=== PATIENT | male | born 1980 | race Caucasian/White ===

== ENCOUNTER 2024-05-25 21:00 | Emergency (ER) | payer MEDICAID, OTHER ==
[~2024-05-25] VITALS: Ht 167.6 cm; Wt 129.5 kg
[2024-05-25 21:34] LABS: BASOPHILS % (AUTO) 0.5 % (0-1); EOSINOPHILS # (AUTO) 0.2 X10'3 (0-0.9); HEMATOCRIT 40.4 % (42.0-52.0); HEMOGLOBIN 13.7 g/dl (14.0-17.9); LYMPHOCYTES # (AUTO) 3.4 X10'3 (1.1-4.8); LYMPHOCYTES % (AUTO) 38.3 % (21-51); MEAN CORPUSCULAR HGB CONC 33.8 g/dL (33.0-36.5); MEAN CORPUSCULAR VOLUME 85.8 FL (78-98); MONOCYTES # (AUTO) 0.8 X10'3 (0-0.9); MONOCYTES % (AUTO) 8.9 % (2-12); NEUTROPHILS # (AUTO) 4.5 X10'3 (1.8-7.7); NEUTROPHILS % (AUTO) 50.3 % (42-75); PLATELET COUNT 287 X10'3 (140-440); RED BLOOD COUNT 4.71 X10'6 (4.70-6.10); RED CELL DISTRIBUTION WIDTH 13.3 % (11.5-14.5)
[2024-05-25 21:48] LABS: ALANINE AMINOTRANSFERASE 42 U/L (12-78); ALBUMIN 3.8 G/DL (3.4-5.0); ALBUMIN/GLOBULIN RATIO 0.9 (1.1-1.5); ALKALINE PHOSPHATASE 70 IU/L (46-116); ANION GAP 10 (8-16); ASPARTATE AMINO TRANSFERASE 21 U/L (10-37); BILIRUBIN,TOTAL 0.4 MG/DL (0.1-1.0); BLOOD UREA NITROGEN 19 MG/DL (7-18); BUN/CREATININE RATIO 18.4 (10.0-20.0); CALCIUM 9.4 MG/DL (8.5-10.1); CHLORIDE 104 MMOL/L (99-107); CREATININE 1.03 MG/DL (0.60-1.10); GLUCOSE 97 MG/DL (70-104); POTASSIUM 3.7 MMOL/L (3.5-5.1); SODIUM 139 MMOL/L (135-145); TOTAL CARBON DIOXIDE 25.5 MMOL/L (24-32); TOTAL PROTEIN 7.9 G/DL (6.4-8.2); eCRCL 85 ML/MIN; eGFR 80 ML/MIN
[2024-05-25 22:42] VITALS: TEMP 97.3
[2024-05-25 23:06] VITALS: BP 141/79; PULSE 60; RESP 16; O2SAT 98
== END 2024-05-25 23:20 | disposition home or self-care (01) ==
LOC: ER 21:00
DX: R07.89 Other chest pain (principal); F43.9 Reaction to severe stress, unspecified; E66.01 Morbid (severe) obesity due to excess calories; Z56.0 Unemployment, unspecified
CPT/HCPCS: 36415; 71045; 80053; 84484; 85025; 93005; 99285

== ENCOUNTER 2025-01-05 08:38 | Emergency (ER) | payer MEDICAID ==
[~2025-01-05] VITALS: Ht 165.1 cm; Wt 129.1 kg
[2025-01-05] MEDS ORDERED: AMOX-580 PO (10:45)
[2025-01-05] MEDS ORDERED: ALBU8HFA INH (10:47)
--- NOTE | 2025-01-05 10:47 | Physician Documentation ---
History of Present Illness ~ Chief Complaint: Cold, cough & congestion Stated Complaint: RULE OUT PNEUMONIA Time Seen by MD: 10:04 Primary Medical Doctor: none Source: patient Mode of Arrival: POV Exam Limitations: no limitations HPI 44-year-old male with chief complaint sinus congestion and cough for seven days. Cough is dry. He states yesterday he ran a five [employer] and was able to do this but states that today he feels his symptoms are little bit worse and when he called an online telehealth doctor he was told to get evaluated to make sure he did not have pneumonia. Patient denies fever, chills, chest pain. No pre-arrival treatment. States he does not have asthma to his knowledge, but but reports he has been prescribed an inhaler on several occasions. He currently states he does not have an inhaler. Medication Reconciliation Allergies: Coded Allergies: No Known Allergies (Unverified , 01/05/25) Past Medical History Past Medical History: No Pertinent History Past Surgical History: no surgical history Alcohol Use: None Drug Use: none Lives In: Home Occupation: unemployed Review of Systems All Other Systems at this time: Reviewed and Negative Physical Exam Vital Signs: Temperature: 98.8, Source: Oral, Heart Rate: 68, Respiratory Rate: 18, BP: 121/83, Pulse Oximetry: 98, Weight: 129.090 Physical Exam General Appearance: Alert, WD/WN. NAD. HEENT: NCAT, PERRL, EOMI. Tenderness over sinuses. Patient sounds congested. Posterior was pharyngeal wall normal. Neck: Supple, trachea midline. No cervical lymphadenopathy Cardiovascular: RRR. No m/r/g. Lungs: CTAB. Breathing unlabored. No coughing observed. Extremities: Normal inspection. No edema. Skin: Warm/dry, normal color Neurological: Alert and oriented x4, normal gait. Psychiatric: Affect congruent with mood. Progress Results/Orders Results/Orders Vital Signs 01/05/25 08:48 Temp 98.8 Pulse 68 Resp 18 B/P (MAP) 121/83 Pulse Ox 98 Medical Decision Making Differential Dx:Considerations: Include: Allergic rhinitis, Influenza, Otitis media, Peritonsillar abscess, Pharyngitis-Diphtheria, Pharyngitis-Streptoccal, Pharyngitis-Viral, Pneumonia, Pnuemonitis, Sinusitis, URI, Other Differential Diagnosis Patient's vital signs are normal I suspect that he has a cough from postnasal drip and some bronchospasm and that the primary infection is in his sinuses. We discussed how it is not recommended to treat sinus infections with antibiotics unless they have been going on for 10 or more days patient has been symptomatic for seven days now we discussed giving it a few more days before starting the antibiotic that I prescribed. Departure Time of Disposition: 10:45 Disposition: 01 HOME / SELF CARE / HOMELESS Impression: Primary Impression: Sinusitis Qualified Codes: J01.00 - Acute maxillary sinusitis, unspecified Condition: Stable Discharge Instructions: Sinus Infection, Adult Additional Instructions: Patient's vital signs are normal I suspect that he has a cough from postnasal drip and some bronchospasm and that the primary infection is in his sinuses. We discussed how it is not recommended to treat sinus infections with antibiotics unless they have been going on for 10 or more days patient has been symptomatic for seven days now we discussed giving it a few more days before starting the antibiotic that I prescribed. Referrals: NO PRIMARY CARE PROVIDER (PCP) Prescriptions albuterol inhaler (Pro-Air Inhaler) 8.5 Gm Inhaler 2 PUFFS INH Q4HPRN PRN for wheezing for 30 Days, #18 GM Prov: ALMA COHEN 01/05/25 Amox Tr/Potassium Clavulanate 875/125 MG (Augmentin 875/125 MG) 875 Mg-125 Mg Tablet 1 TAB PO Q12H for 10 Days, #20 TAB Prov: ALMA COHEN 01/05/25 Education Educated: Patient Educated regarding: diagnosis, treatment, need for follow up Signature Scribe Signature: x Attestation: ALMA Hanson Jan 05, 2025 10:47
[2025-01-05 11:04] VITALS: BP 118/64; PULSE 68; RESP 16; TEMP 98.8; O2SAT 98
== END 2025-01-05 11:05 | disposition home or self-care (01) ==
LOC: ER 08:38
DX: J32.9 Chronic sinusitis, unspecified (principal); Z56.0 Unemployment, unspecified
CPT/HCPCS: 99283